=== PATIENT | male | born 1970 | race Caucasian/White ===

== ENCOUNTER 2017-07-20 04:04 | Emergency (ER) | payer BC, OTHER ==
[~2017-07-20] VITALS: Ht 172.7 cm; Wt 68.8 kg
[2017-07-20 04:06] VITALS: BP 121/75
[2017-07-20] MEDS ORDERED: FLUORESCEIN OPHTHALMIC 1 MG STRIP ONE (04:19)
[2017-07-20] MEDS ORDERED: PROPARACAINE OPHTH 0.5%, 15ML ONE (04:19)
== END 2017-07-20 05:10 | disposition home or self-care (01) ==
LOC: ED 04:40
DX: H57.12 Ocular pain, left eye (principal); H00.14 Chalazion left upper eyelid; Z90.49 Acquired absence of other specified parts of digestive tract
CPT/HCPCS: 99283